=== PATIENT | female | born 1930 | race Caucasian/White ===

== ENCOUNTER 2018-10-31 10:47 | Inpatient (IN) | payer MEDICARE, BC ==
[~2018-10-31] VITALS: Ht 165.1 cm; Wt 75.0 kg
[~2018-10-31 10:47] MED LIST: ANASTROZOLE1 MG PO; ANTIDEPRESSANT; APAP/HYDROCO1 TAB OR; ARIMIDEX1 MG PO; BENICAR HCT1 TA1 PO; BENICAR20 MG PO; BL CALCIUM500 MG PO; CELEBREX100 M1 PO; CELEBREX200 MG PO; CITRACAL + D OR; CLARITIN10 MG PO; COLACE100 MG OR; COLACE100 MG PO; COLACE50 MG OR; DOCUSATE CAL240 MG PO; DULCOLAX5 MG PO; ESCITALOPRAM OX10 MG PO; FLONASE NASAL50 MCG; FLUZONE SPLT1 M1 IM; KLOR-CON 1010 MEQ OR; KRISTALOSE10 GM OR; LASIX40 MG OR; LEXAPRO10 MG PO; LORATADINE10 M1 PO; METAMUCIL28 % OR; MULTI VIT OR; OXYCOD/APAP1 TA4 PO; PRILOSEC20 MG/CAP PO; RECLAST5 MG/100 M IV; SPIRIVA IN; SYMBICORT1 AE1 IN; TAMOXIFEN20 MG OR; ULTRAM50 M1 PO; VALIUM5 MG PO; [UNRECOGNIZED DRUG - CODE] PO; [UNRECOGNIZED DRUG - OTHER] RE
[2018-10-31] MEDS ORDERED: MELOXICAM15 MG PO (11:08)
[2018-10-31] MEDS ORDERED: BENICAR HCT1 TA1 PO (11:08)
[2018-10-31] MEDS ORDERED: VENTOLIN HFA IN (11:10)
[2018-10-31] MEDS ORDERED: AMLODIPINE5 MG PO (11:10)
[2018-10-31] MEDS ORDERED: ANORO ELLIPTA 61 AER IN (11:11)
[2018-10-31] MEDS ORDERED: IPRATROPIUM BR0.03 % (11:11)
[2018-10-31] MEDS ORDERED: PREDNISONE20 MG PO (11:12)
[2018-10-31] MEDS ORDERED: IRON325 M1 (11:12)
[2018-10-31 11:13] LABS: HEMATOCRIT 39.3 % (37.0-47.0); IMMATURE GRANULOCYTES 1.2 % (0.0-5.0); MEAN CELL VOLUME 91.2 fL CALC (80.0-100.0); MEAN CORPUSCULAR HGB 30.6 pG CALC (26.0-32.0); MEAN CORPUSCULAR HGB CONC 33.6 g/L CALC (32.0-36.0); NEUT# 15.12 thou/uL (2.00-7.15); RED BLOOD COUNT 4.31 mill/uL (4.20-5.60); RED CELL DISTRI WIDTH 12.6 % (11.5-15.5)
[2018-10-31 11:15] LABS: HEMOGLOBIN 13.2 g/dl (12.0-16.0)
[2018-10-31 11:29] LABS: BUN 38 mg/dL (8-23); BUN/CREATININE RATIO 46 (12-20 (CALC)); CREATININE 0.8 mg/dL (0.5-1.0); GFR > 60 ML/MIN (>=60 (CALC)); GFR FOR AFR.AMER. > 60 ML/MIN (>=60 (CALC)); POTASSIUM 3.4 mmol/l (3.5-5.1)
[2018-10-31 11:30] LABS: ALBUMIN 3.4 g/dL (3.2-5.0); ALKALINE PHOSPHATASE 91 u/l (38-126); BILIRUBIN, TOTAL 0.4 mg/dL (0.0-1.4); SGOT/AST 29 u/l (9-36); TOTAL PROTEIN 6.1 g/dL (6.3-8.2)
[2018-10-31 11:36] LABS: PROTHROMBIN TIME 10.9 SECONDS (9.0-12.5)
[2018-10-31 11:37] LABS: ANION GAP 9 (6-22 (CALC)); CARBON DIOXIDE 41 mmol/l (22-30)
[2018-10-31 11:38] LABS: CHLORIDE 80 mmol/l (95-108); SODIUM 127 mmol/l (137-146)
[2018-10-31 11:42] LABS: MYOGLOBIN 185 ng/mL (0 - 62)
[2018-10-31 15:51] VITALS: BP 115/63
[2018-10-31 19:00] VITALS: BP 119/71
[2018-11-01 04:15] VITALS: BP 150/73
[2018-11-01 06:24] LABS: HEMATOCRIT 37.7 % (37.0-47.0); HEMOGLOBIN 12.5 g/dl (12.0-16.0); MEAN CELL VOLUME 91.7 fL CALC (80.0-100.0); MEAN CORPUSCULAR HGB 30.4 pG CALC (26.0-32.0); MEAN CORPUSCULAR HGB CONC 33.2 g/L CALC (32.0-36.0); NEUT# 9.65 thou/uL (2.00-7.15); RED BLOOD COUNT 4.11 mill/uL (4.20-5.60); RED CELL DISTRI WIDTH 12.5 % (11.5-15.5)
[2018-11-01 06:38] LABS: ALKALINE PHOSPHATASE 87 u/l (38-126); BILIRUBIN, TOTAL 0.3 mg/dL (0.0-1.4); BUN 31 mg/dL (8-23); BUN/CREATININE RATIO 49 (12-20 (CALC)); CHLORIDE 84 mmol/l (95-108); CREATININE 0.6 mg/dL (0.5-1.0); GFR > 60 ML/MIN (>=60 (CALC)); GFR FOR AFR.AMER. > 60 ML/MIN (>=60 (CALC)); SGOT/AST 24 u/l (9-36); SODIUM 129 mmol/l (137-146); TOTAL PROTEIN 5.4 g/dL (6.3-8.2)
[2018-11-01 06:46] LABS: ANION GAP 10 (6-22 (CALC)); CARBON DIOXIDE 39 mmol/l (22-30)
[2018-11-01 06:49] LABS: POTASSIUM 4.4 mmol/l (3.5-5.1)
[2018-11-01 07:45] VITALS: BP 164/96
[2018-11-01 11:30] VITALS: BP 139/60
[2018-11-01 19:00] VITALS: BP 126/57
[2018-11-02] VITALS (7 sets, daily range): BP systolic 114–142; BP diastolic 55–83
[2018-11-02 02:26] LABS: URINE BILIRUBIN - DIPSTICK NEGATIVE (NEGATIVE); URINE BLOOD DIPSTICK LARGE (NEGATIVE); URINE COLOR YELLOW; URINE GLUCOSE - DIPSTICK NEGATIVE (NEGATIVE); URINE KETONE NEGATIVE (NEGATIVE); URINE NITRITE - DIPSTICK NEGATIVE (Negative); URINE PROTEIN - DIPSTICK 30 mg/dL (NEG-TRACE); URINE SPECIFIC GRAVITY 1.025; URINE UROBILINOGEN - DIPSTICK 0.2 E.U./dL (0.2)
[2018-11-02 02:36] LABS: URINE CLARITY SL CLOUDY; URINE LEUK ESTERASE SMALL (NEGATIVE)
[2018-11-02 02:52] LABS: URINE SQUAMOUS EPITHELIAL CELL FEW EPI/hpf (0-FEW)
[2018-11-02 06:05] LABS: HEMATOCRIT 37.3 % (37.0-47.0); HEMOGLOBIN 12.3 g/dl (12.0-16.0); MEAN CELL VOLUME 92.6 fL CALC (80.0-100.0); MEAN CORPUSCULAR HGB 30.5 pG CALC (26.0-32.0); RED BLOOD COUNT 4.03 mill/uL (4.20-5.60); RED CELL DISTRI WIDTH 12.7 % (11.5-15.5)
[2018-11-02 06:08] LABS: ANION GAP 10 (6-22 (CALC)); BUN 39 mg/dL (8-23); BUN/CREATININE RATIO 64 (12-20 (CALC)); CARBON DIOXIDE 35 mmol/l (22-30); CHLORIDE 87 mmol/l (95-108); CREATININE 0.6 mg/dL (0.5-1.0); GFR > 60 ML/MIN (>=60 (CALC)); GFR FOR AFR.AMER. > 60 ML/MIN (>=60 (CALC)); POTASSIUM 3.8 mmol/l (3.5-5.1); SODIUM 128 mmol/l (137-146)
[2018-11-03 04:55] VITALS: BP 140/64
[2018-11-03 05:49] LABS: HEMATOCRIT 36.4 % (37.0-47.0); MEAN CELL VOLUME 91.5 fL CALC (80.0-100.0); MEAN CORPUSCULAR HGB 30.2 pG CALC (26.0-32.0); RED BLOOD COUNT 3.98 mill/uL (4.20-5.60); RED CELL DISTRI WIDTH 12.8 % (11.5-15.5)
[2018-11-03 06:15] LABS: ANION GAP 8 (6-22 (CALC)); BUN 43 mg/dL (8-23); BUN/CREATININE RATIO 70 (12-20 (CALC)); CARBON DIOXIDE 36 mmol/l (22-30); CHLORIDE 89 mmol/l (95-108); CREATININE 0.6 mg/dL (0.5-1.0); GFR > 60 ML/MIN (>=60 (CALC)); GFR FOR AFR.AMER. > 60 ML/MIN (>=60 (CALC)); MAGNESIUM 2.2 mg/dL (1.6-2.3); POTASSIUM 4.2 mmol/l (3.5-5.1); SODIUM 129 mmol/l (137-146)
[2018-11-03 09:04] VITALS: BP 145/75
[2018-11-03 11:30] VITALS: BP 112/71
[2018-11-03 15:30] VITALS: BP 119/73
[2018-11-03 20:18] VITALS: BP 116/62
[2018-11-04] VITALS: BP 131/74
[2018-11-04 04:32] VITALS: BP 123/61
[2018-11-04 08:00] VITALS: BP 144/75
[2018-11-04 11:33] VITALS: BP 109/85
[2018-11-04 15:49] VITALS: BP 131/74
[2018-11-04 19:59] VITALS: BP 119/71
[2018-11-05] VITALS (7 sets, daily range): BP systolic 81–143; BP diastolic 48–70
[2018-11-05 05:52] LABS: HEMATOCRIT 40.8 % (37.0-47.0); HEMOGLOBIN 13.3 g/dl (12.0-16.0); MEAN CORPUSCULAR HGB 30.6 pG CALC (26.0-32.0); MEAN CORPUSCULAR HGB CONC 32.6 g/L CALC (32.0-36.0); NEUT# 13.98 thou/uL (2.00-7.15); RED BLOOD COUNT 4.34 mill/uL (4.20-5.60); RED CELL DISTRI WIDTH 13.2 % (11.5-15.5)
[2018-11-05 05:59] LABS: ALBUMIN 2.9 g/dL (3.2-5.0); ALKALINE PHOSPHATASE 92 u/l (38-126); ANION GAP 12 (6-22 (CALC)); BILIRUBIN, TOTAL 0.4 mg/dL (0.0-1.4); BUN 52 mg/dL (8-23); BUN/CREATININE RATIO 73 (12-20 (CALC)); CARBON DIOXIDE 31 mmol/l (22-30); CHLORIDE 92 mmol/l (95-108); CREATININE 0.7 mg/dL (0.5-1.0); GFR > 60 ML/MIN (>=60 (CALC)); GFR FOR AFR.AMER. > 60 ML/MIN (>=60 (CALC)); MAGNESIUM 2.1 mg/dL (1.6-2.3); POTASSIUM 4.6 mmol/l (3.5-5.1); SGOT/AST 23 u/l (9-36); SODIUM 131 mmol/l (137-146); TOTAL PROTEIN 5.2 g/dL (6.3-8.2)
[2018-11-06 00:19] VITALS: BP 106/58
[2018-11-06 04:37] VITALS: BP 108/65
[2018-11-06 05:37] LABS: HEMATOCRIT 36.9 % (37.0-47.0); HEMOGLOBIN 12.1 g/dl (12.0-16.0); IMMATURE GRANULOCYTES 1.7 % (0.0-5.0); MEAN CELL VOLUME 92.7 fL CALC (80.0-100.0); MEAN CORPUSCULAR HGB 30.4 pG CALC (26.0-32.0); MEAN CORPUSCULAR HGB CONC 32.8 g/L CALC (32.0-36.0); NEUT# 14.87 thou/uL (2.00-7.15); RED BLOOD COUNT 3.98 mill/uL (4.20-5.60); RED CELL DISTRI WIDTH 13.2 % (11.5-15.5)
[2018-11-06 06:06] LABS: ALBUMIN 2.6 g/dL (3.2-5.0); ALKALINE PHOSPHATASE 91 u/l (38-126); ANION GAP 13 (6-22 (CALC)); BILIRUBIN, TOTAL 0.5 mg/dL (0.0-1.4); BUN 52 mg/dL (8-23); BUN/CREATININE RATIO 64 (12-20 (CALC)); CARBON DIOXIDE 30 mmol/l (22-30); CHLORIDE 93 mmol/l (95-108); CREATININE 0.8 mg/dL (0.5-1.0); GFR > 60 ML/MIN (>=60 (CALC)); GFR FOR AFR.AMER. > 60 ML/MIN (>=60 (CALC)); MAGNESIUM 2.2 mg/dL (1.6-2.3); POTASSIUM 4.7 mmol/l (3.5-5.1); SGOT/AST 21 u/l (9-36); SODIUM 132 mmol/l (137-146); TOTAL PROTEIN 4.8 g/dL (6.3-8.2)
[2018-11-06 09:46] VITALS: BP 113/53
[2018-11-06 11:28] VITALS: BP 123/76
[2018-11-06] MEDS ORDERED: DOXYCYCL HYC100 M4 PO (14:32)
[2018-11-06 15:55] VITALS: BP 107/66
== END 2018-11-06 16:35 | disposition home or self-care (01) | DRG 190 ==
LOC: ED 10:47 → ED-I 12:53 → ED 12:53 → MS2 12:59
PROVIDERS: Emergency Medicine; Internal Medicine; ADMIT Internal Medicine Nephrology; ATTEND Internal Medicine Nephrology
DX: J44.1 Chronic obstructive pulmonary disease with (acute) exacerbation (principal); J18.9 Pneumonia, unspecified organism; E87.4 Mixed disorder of acid-base balance; C20 Malignant neoplasm of rectum; J96.11 Chronic respiratory failure with hypoxia; E22.2 Syndrome of inappropriate secretion of antidiuretic hormone; J44.0 Chronic obstructive pulmonary disease with (acute) lower respiratory infection; I10 Essential (primary) hypertension; T50.2X5A Adverse effect of carbonic-anhydrase inhibitors, benzothiadiazides and other diuretics, initial encounter; M40.209 Unspecified kyphosis, site unspecified; R62.7 Adult failure to thrive; M19.90 Unspecified osteoarthritis, unspecified site; Z85.3 Personal history of malignant neoplasm of breast; Z79.1 Long term (current) use of non-steroidal anti-inflammatories (NSAID); Z79.52 Long term (current) use of systemic steroids
CPT/HCPCS: J1650